=== PATIENT | male | born 1995 | race American Indian/Alaskan Native ===

== ENCOUNTER 2020-01-26 00:53 | Emergency (ER) | payer MEDICAID, OTHER ==
[2020-01-26] MEDS ORDERED: Sodium Chloride 0.9% 10 ML Syringe FLUSH PRN (01:30)
[2020-01-26] MEDS ORDERED: cloNIDine 0.1 MG Tab PO ONE (01:31)
[2020-01-26] MEDS ORDERED: LORazepam 2 MG/ML SDV IVPUSH ONE (01:33)
[2020-01-26] MEDS ORDERED: Furosemide 40 MG/4 ML VIAL IVPUSH ONE (01:33)
[2020-01-26 02:06] LABS: ANION GAP 13.2 mEq/L (7-13); CHLORIDE,CL 96 mmol/L (98-107); SODIUM,NA 138 mmol/L (136-145)
--- NOTE | 2020-01-26 02:06 | EDM.PDOCBH ---
ED HPI GENERAL MEDICAL PROBLEM - General Chief Complaint: Behavioral/Psych Stated Complaint: ISSUES? PT STATES HE NEEDS HELP Time Seen by Provider: 01/26/20 01:15 Source of Information: Reports: Patient, Family, RN, RN Notes Reviewed History Limitations: Reports: No Limitations - History of Present Illness INITIAL COMMENTS - FREE TEXT/NARRATIVE: Patient presents to ER with complaint of anxiety and swelling of the lower legs. Patient states he came here from [place] for his mother's . Patient states he has been drinking heavily for the past couple of months on a daily basis. Patient states last drink was 2 days ago. Patient states he has been feeling anxious for the past 7 days. States he has a history of high blood pressure, borderline diabetes not on any meds at this time for that. Patient states he takes 80 mg of Lasix daily, hydrochlorothiazide. Patient states over the past couple of days he has noticed increased swelling in the lower legs and feet, to the point that he is unable to wear shoes. Patient states his blood pressure is quite elevated at this time as well. Patient admits to some shortness of breath with ambulating and exertion. Denies any pain other than the tautness of the skin of the lower legs. Patient's father is concerned regarding COVID testing. Patient states he has been tested twice in the past and they were negative, and states he has not had any exposure to COVID-19. Patient has green gummy drainage from the eyes bilaterally, states this has been going on for the past couple of days. Patient states he does to have gallstones and has been doctoring for that. Patient states he had developed ascites from the gallstones. Onset: Gradual - Related Data Allergies Allergy/AdvReac Type Severity Reaction Status Date / Time No Known Allergies Allergy Verified 01/26/20 01:07 Home Meds: Home Meds Furosemide [Lasix] 80 mg PO DAILY 01/26/20 [History] hydroCHLOROthiazide [Hydrochlorothiazide] 12.5 mg PO DAILY 01/26/20 [History] Past Medical History Cardiovascular History: Reports: Hypertension Other Cardiovascular History: edema Gastrointestinal History: Reports: Cholelithiasis Endocrine/Metabolic History: Reports: Obesity/BMI 30+ Social & Family History - Tobacco Use Smoking Status *Q: Never Smoker Second Hand Smoke Exposure: No - Recreational Drug Use Recreational Drug Use: No ED ROS GENERAL - Review of Systems Review Of Systems: Comprehensive ROS is negative, except as noted in HPI. ED EXAM, BEHAVIORAL HEALTH - Physical Exam Exam: See Below Exam Limited By: No Limitations General Appearance: Alert, WD/WN, No Apparent Distress, Obese Eye Exam: Bilateral Eye: Conjunctival Injection, EOMI, Other (Green discharge) Ears: Normal External Exam, Hearing Grossly Normal Nose: Normal Inspection Throat/Mouth: Normal Inspection, Normal Voice, No Airway Compromise Head: Atraumatic, Normocephalic Neck: Normal Inspection, Supple, Non-Tender, Full Range of Motion Respiratory/Chest: No Respiratory Distress, Lungs Clear, Normal Breath Sounds, No Accessory Muscle Use, Chest Non-Tender Cardiovascular: Normal Peripheral Pulses, Regular Rate, Rhythm, No Edema, No Gallop, No JVD, No Murmur, No Rub GI/Abdominal: Normal Bowel Sounds, Soft, Non-Tender (Male) Exam: Deferred Rectal (Males) Exam: Deferred Back Exam: Normal Inspection, Decreased Range of Motion Extremities: Pedal Edema, Limited Range of Motion, Other (Pitting edema to the lower legs and feet +4) Neurological: Alert, Normal Mood/Affect, CN II-XII Intact, Normal Cognition, Normal Gait, Normal Reflexes, No Motor/Sensory Deficits, Oriented x 3 Psychiatric: Alert, Normal Affect, Normal Cognition, Normal Mood, Oriented Skin Exam: Warm, Dry, Intact, Normal color, No rash COURSE, BEHAVIORAL HEALTH COMP - Course Vital Signs: Last Vital Signs Temp 97.5 F 01/26/20 01:00 Pulse 119 H 01/26/20 01:00 Resp 22 H 01/26/20 01:00 BP 166/120 H 01/26/20 01:44 Pulse Ox 95 01/26/20 01:00 Orders, Labs, Meds: Active Orders 24 hr Category Date Time Status Peripheral IV Care [RC] . DIRECTED Care 01/26/20 01:31 Active Sodium Chloride 0.9% [Saline Flush] Med 01/26/20 01:30 Active 10 ml FLUSH ASDIRECTED PRN Peripheral IV Insertion Adult [OM.PC] Stat Oth 01/26/20 01:30 Ordered Medication Orders Sodium Chloride (Saline Flush) 10 ml FLUSH ASDIRECTED PRN PRN Reason: Keep Vein Open Last Admin: 01/26/20 01:48 Dose: 10 ml Documented by: JOSEPH Laboratory Tests 01/26/20 01/26/20 Range/Units 01:39 01:39 WBC 7.8 (5.0-10.0) 10^3/uL RBC 6.13 (4.6-6.2) 10^6/uL Hgb 18.4 H (14.0-18.0) g/dL Hct 57.7 H (40.0-54.0) % MCV 94.1 (80-100) fL MCH 30.0 (27.0-34.0) pg MCHC 31.9 L (33.0-35.0) g/dL Plt Count 162 (150-450) 10^3/uL Neut % (Auto) 67.5 (42.2-75.2) % Lymph % (Auto) 18.9 L (20.5-50.1) % [place] % (Auto) 9.7 H (2-8) % Eos % (Auto) 3.5 H (1.0-3.0) % Baso % (Auto) 0.4 (0.0-1.0) % Sodium 138 (136-145) mmol/L Potassium 3.2 L (3.5-5.1) mmol/L Chloride 96 L (98-107) mmol/L Carbon Dioxide 32 (21-32) mmol/L Anion Gap 13.2 H (7-13) mEq/L BUN 7 (7-18) mg/dL Creatinine 1.17 (0.70-1.30) mg/dL Est Cr Clr Drug Dosing 105.94 mL/min Estimated GFR (MDRD) > 60 BUN/Creatinine Ratio 6.0 (No establ ref range) Glucose 105 H (74-99) mg/dL Calcium 8.8 (8.5-10.1) mg/dL Total Bilirubin 4.7 H (0.2-1.0) mg/dL AST 176 H (15-37) U/L ALT 110 H (16-63) U/L Alkaline Phosphatase 259 H (46-116) U/L B-Natriuretic Peptide 506 H (0-100) pg/ml Total Protein 9.0 H (6.4-8.2) g/dL Albumin 3.3 L (3.4-5.0) g/dL Globulin 5.7 Albumin/Globulin Ratio 0.58 Ethyl Alcohol < 3 (0) mg/dL Medications Generic Name Dose Route Start Last Admin Trade Name Freq PRN Reason Stop Dose Admin Sodium Chloride 10 ml 01/26/20 01:30 01/26/20 01:48 Saline Flush FLUSH 10 ml ASDIRECTED PRN Administration Keep Vein Open Discontinued Medications Generic Name Dose Route Start Last Admin Trade Name Freq PRN Reason Stop Dose Admin Clonidine HCl 0.1 mg 01/26/20 01:31 01/26/20 01:44 Catapres PO 01/26/20 01:32 0.1 mg ONETIME ONE Administration Furosemide 80 mg 01/26/20 01:33 01/26/20 01:48 Lasix IVPUSH 01/26/20 01:34 80 mg NOW ONE Administration Lorazepam 1 mg 01/26/20 01:33 01/26/20 01:45 Ativan IVPUSH 01/26/20 01:34 1 mg ONETIME ONE Administration Re-Assessment/Re-Exam: Chest xray: PROCEDURE INFORMATION: Exam: XR Chest, 2 Views Exam date and time: 01/26/2020 1:52 AM Age: 24 years old Clinical indication: Other: Dependant edema, SOB TECHNIQUE: Imaging protocol: XR of the chest Views: 2 views. COMPARISON: No relevant prior studies available. FINDINGS: Lungs: Unremarkable. No consolidation. Pleural space: Unremarkable. No pleural effusion. No pneumothorax. Heart/Mediastinum: Unremarkable. No cardiomegaly. Bones/joints: Unremarkable. IMPRESSION: No acute findings. Thank you for allowing us to participate in the care of your patient. Dictated and Authenticated by: Brian Herrmann MD 01/26/2020 2:20 AM Central Time ([place] & [place]) See rad report Discharge vs Psych Eval/Treatment:: 01/26/20 02:56 Discussed patient case with Dr. Head at [facility], who agreed to accept the patient for transfer. Departure - Departure Time of Disposition: 03:24 Disposition: DC/Tfer to Acute Hospital 02 Condition: Fair Clinical Impression: Anxiety, Alcohol abuse, Elevated liver enzymes Hypertension Qualifiers: Hypertension type: unspecified Qualified Code(s): I10 - Essential (primary) hypertension - Discharge Information *PRESCRIPTION DRUG MONITORING PROGRAM REVIEWED*: No *COPY OF PRESCRIPTION DRUG MONITORING REPORT IN PATIENT TYE: No Forms: ED Department Discharge, Interfacility Transfer EMTALA Sepsis Event Note (ED) - Evaluation Sepsis Screening Result: No Definite Risk - Focused Exam Vital Signs: Vital Signs Temp Pulse Resp BP BP BP Pulse Ox 01/26/20 01:44 166/120 H 01/26/20 01:00 97.5 F 119 H 22 H 189/127 H 173/132 H 95 - My Orders Last 24 Hours: My Active Orders 01/26/20 01:30 Sodium Chloride 0.9% [Saline Flush] 10 ml FLUSH ASDIRECTED PRN Peripheral IV Insertion Adult [OM.PC] Stat 01/26/20 01:31 Peripheral IV Care [RC] . DIRECTED - Assessment/Plan Last 24 Hours: My Active Orders 01/26/20 01:30 Sodium Chloride 0.9% [Saline Flush] 10 ml FLUSH ASDIRECTED PRN Peripheral IV Insertion Adult [OM.PC] Stat 01/26/20 01:31 Peripheral IV Care [RC] . DIRECTED
--- NOTE | 2020-01-26 02:20 | CR ---
PROCEDURE INFORMATION: Exam: XR Chest, 2 Views Exam date and time: 01/26/2020 1:52 AM Age: 24 years old Clinical indication: Other: Dependant edema, SOB TECHNIQUE: Imaging protocol: XR of the chest Views: 2 views. COMPARISON: No relevant prior studies available. FINDINGS: Lungs: Unremarkable. No consolidation. Pleural space: Unremarkable. No pleural effusion. No pneumothorax. Heart/Mediastinum: Unremarkable. No cardiomegaly. Bones/joints: Unremarkable. IMPRESSION: No acute findings.
== END 2020-01-26 03:21 ==
LOC: DL.ED 00:53
DX: F41.9 Anxiety disorder, unspecified (principal); I10 Essential (primary) hypertension; F10.10 Alcohol abuse, uncomplicated; R74.8 Abnormal levels of other serum enzymes; E66.9 Obesity, unspecified; Z68.45 Body mass index [BMI] 70 or greater, adult; Z79.899 Other long term (current) drug therapy
CPT/HCPCS: 36415; 71046; 80053; 80307; 83880; 85025; 96374; 96375; 99284; A9270; J1940; J2060

== ENCOUNTER 2020-04-29 22:42 | Emergency (ER) | payer MEDICAID, OTHER ==
--- NOTE | 2020-04-29 23:01 | EDM.PDOCBH ---
ED HPI GENERAL MEDICAL PROBLEM - General Chief Complaint: Behavioral/Psych Stated Complaint: DOESNT FEEL WELL Time Seen by Provider: 04/29/20 22:59 Source of Information: Reports: Patient, RN, RN Notes Reviewed History Limitations: Reports: No Limitations - History of Present Illness INITIAL COMMENTS - FREE TEXT/NARRATIVE: Patient presents to ER with complaint of a lot of stress and anxiety. States he was sitting watching football game and became very sweaty, and states it resolved spontaneously. Patient denied any chest pains or shortness of breath with the episode, states he did not feel super anxious at that time. States he has been working with the doctor at [facility] for weight loss, has lost 30 pounds since January. Patient states he has refrain from drinking alcohol since January, and has been focusing on his health. Patient states he was discharged from the hospital in January with trazodone, states he has ran out of that. Patient states his primary will not refill the trazodone. Patient states he has had several family members that have been ill, and this gives him a lot of stress and anxiety. States he has been wanting to start some counseling, but does not know how to go about it. - Related Data Allergies Allergy/AdvReac Type Severity Reaction Status Date / Time No Known Allergies Allergy Verified 04/29/20 22:51 Home Meds: Home Meds Furosemide [Lasix] 80 mg PO DAILY 01/26/20 [History] Potassium Chloride 40 meq PO DAILY 04/29/20 [History] Spironolactone [Aldactone] 25 mg PO DAILY 04/29/20 [History] carvediloL [Carvedilol] 6.25 mg PO DAILY 04/29/20 [History] lisinopriL [Lisinopril] 5 mg PO DAILY 04/29/20 [History] Past Medical History Cardiovascular History: Reports: Hypertension Other Cardiovascular History: edema Gastrointestinal History: Reports: Cholelithiasis, GERD Psychiatric History: Reports: Anxiety Endocrine/Metabolic History: Reports: Obesity/BMI 30+ Social & Family History - Family History Family Medical History: Noncontributory - Tobacco Use Smoking Status *Q: Former Smoker Used Tobacco, but Quit: Yes Month/Year Tobacco Last Used: 01/13 - Caffeine Use Caffeine Use: Reports: Coffee, Tea - Recreational Drug Use Recreational Drug Use: No ED ROS GENERAL - Review of Systems Review Of Systems: Comprehensive ROS is negative, except as noted in HPI. ED EXAM, BEHAVIORAL HEALTH - Physical Exam Exam: See Below Exam Limited By: No Limitations General Appearance: Alert, WD/WN, No Apparent Distress, Obese Eye Exam: Bilateral Eye: EOMI, Normal Inspection Ears: Normal External Exam, Hearing Grossly Normal Nose: Normal Inspection Throat/Mouth: Normal Inspection, Normal Voice, No Airway Compromise Head: Atraumatic, Normocephalic Neck: Normal Inspection, Supple, Non-Tender, Full Range of Motion Respiratory/Chest: No Respiratory Distress, Lungs Clear, Normal Breath Sounds, No Accessory Muscle Use, Chest Non-Tender Cardiovascular: Normal Peripheral Pulses, Regular Rate, Rhythm, No Edema, No Gallop, No JVD, No Murmur, No Rub GI/Abdominal: Normal Bowel Sounds, Soft, Non-Tender (Male) Exam: Deferred Rectal (Males) Exam: Deferred Back Exam: Normal Inspection, Full Range of Motion, NT Extremities: Normal Inspection, Normal Range of Motion, Non-Tender, Normal Capillary Refill, Pedal Edema (+2) Neurological: Alert, Normal Mood/Affect, CN II-XII Intact, Normal Cognition, Normal Gait, Normal Reflexes, No Motor/Sensory Deficits, Oriented x 3 Psychiatric: Alert, Normal Affect, Normal Cognition, Normal Mood, Oriented Skin Exam: Warm, Dry, Intact, Normal color, No rash COURSE, BEHAVIORAL HEALTH COMP - Course Vital Signs: Last Vital Signs Temp 96.6 F L 04/29/20 22:45 Pulse 92 04/29/20 22:45 Resp 16 04/29/20 22:45 BP 157/91 H 04/29/20 22:45 Pulse Ox 94 L 04/29/20 22:45 Orders, Labs, Meds: Active Orders 24 hr Category Date Time Status EKG Documentation Completion [RC] STAT Care 04/29/20 23:08 Active Chest 1V Frontal [CR] Stat Exams 04/29/20 23:08 Stop Req Laboratory Tests 04/29/20 04/29/20 Range/Units 23:20 23:20 WBC 12.8 H (5.0-10.0) 10^3/uL RBC 5.44 (4.6-6.2) 10^6/uL Hgb 16.8 D (14.0-18.0) g/dL Hct 49.2 (40.0-54.0) % MCV 90.4 D (80-100) fL MCH 30.9 (27.0-34.0) pg MCHC 34.1 (33.0-35.0) g/dL Plt Count 336 D (150-450) 10^3/uL Neut % (Auto) 62.8 (42.2-75.2) % Lymph % (Auto) 28.0 (20.5-50.1) % [place] % (Auto) 5.9 (2-8) % Eos % (Auto) 3.1 H (1.0-3.0) % Baso % (Auto) 0.2 (0.0-1.0) % Sodium 138 (136-145) mmol/L Potassium 3.7 (3.5-5.1) mmol/L Chloride 100 (98-107) mmol/L Carbon Dioxide 31 (21-32) mmol/L Anion Gap 10.7 (7-13) mEq/L BUN 18 (7-18) mg/dL Creatinine 0.87 (0.70-1.30) mg/dL Est Cr Clr Drug Dosing 141.23 mL/min Estimated GFR (MDRD) > 60 BUN/Creatinine Ratio 20.7 (No establ ref range) Glucose 128 H (74-99) mg/dL Calcium 9.4 (8.5-10.1) mg/dL Total Bilirubin 0.5 (0.2-1.0) mg/dL AST 29 (15-37) U/L ALT 48 (16-63) U/L Alkaline Phosphatase 161 H (46-116) U/L Troponin I < 0.017 (0.000-0.056) ng/mL Total Protein 8.7 H (6.4-8.2) g/dL Albumin 3.2 L (3.4-5.0) g/dL Globulin 5.5 Albumin/Globulin Ratio 0.58 Departure - Departure Time of Disposition: 23:53 Disposition: Home, Self-Care 01 Condition: Good Clinical Impression: Anxiety - Discharge Information *PRESCRIPTION DRUG MONITORING PROGRAM REVIEWED*: No *COPY OF PRESCRIPTION DRUG MONITORING REPORT IN PATIENT TYE: No Forms: ED Department Discharge Additional Instructions: Present to the [facility] ([address], [place]) Get evaluated and set up for counseling. Sepsis Event Note (ED) - Evaluation Sepsis Screening Result: No Definite Risk - Focused Exam Vital Signs: Vital Signs Temp Pulse Resp BP Pulse Ox 04/29/20 22:45 96.6 F L 92 16 157/91 H 94 L - My Orders Last 24 Hours: My Active Orders 04/29/20 23:08 EKG Documentation Completion [RC] STAT Chest 1V Frontal [CR] Stat - Assessment/Plan Last 24 Hours: My Active Orders 04/29/20 23:08 EKG Documentation Completion [RC] STAT Chest 1V Frontal [CR] Stat
[2020-04-29 23:45] LABS: ANION GAP 10.7 mEq/L (7-13); CHLORIDE,CL 100 mmol/L (98-107); SODIUM,NA 138 mmol/L (136-145)
== END 2020-04-29 23:56 | disposition home or self-care (01) ==
LOC: DL.ED 22:42
DX: F41.9 Anxiety disorder, unspecified (principal); I10 Essential (primary) hypertension; E66.9 Obesity, unspecified; Z79.899 Other long term (current) drug therapy; Z68.44 Body mass index [BMI] 60.0-69.9, adult; Z87.891 Personal history of nicotine dependence
CPT/HCPCS: 36415; 80053; 84484; 85025; 93005; 99283; 99283-25

== ENCOUNTER 2020-08-22 17:54 | Emergency (ER) | payer MEDICAID, OTHER ==
[2020-08-22] MEDS ORDERED: Acetaminophen 325 MG Tab PO ONE (18:12)
--- NOTE | 2020-08-22 19:50 | CR ---
PROCEDURE INFORMATION: Exam: XR Chest, 1 View Exam date and time: 08/22/2020 7:40 PM Age: 25 years old Clinical indication: Other: Covid, SOB, day 9 TECHNIQUE: Imaging protocol: XR of the chest Views: 1 view. Total images: 1 COMPARISON: CR Chest 2V 01/26/2020 1:52 AM FINDINGS: Lungs: Bilateral hazy ground-glass lung opacities. Pleural spaces: Unremarkable. No pleural effusion. No pneumothorax. Heart/Mediastinum: Mild cardiomegaly. Bones/joints: Unremarkable. IMPRESSION: Bilateral ground-glass lung opacities may represent pneumonia and or underlying edema. May be pneumonia with atypical infections possible.
[2020-08-22 19:58] LABS: ANION GAP 14.6 mEq/L (7-13); CHLORIDE,CL 98 mmol/L (98-107); SODIUM,NA 138 mmol/L (136-145)
[2020-08-22] MEDS ORDERED: Amoxicillin/Clavulanate K 875-125 MG Tab PO ONE (20:23)
--- NOTE | 2020-08-22 20:31 | EDM.PDOC ---
ED HPI GENERAL MEDICAL PROBLEM - General Chief Complaint: Fever Stated Complaint: COVID POS, 99.63 TEMP,SHORTNESS OF BREATH Time Seen by Provider: 08/22/20 19:05 Source of Information: Reports: Patient, RN History Limitations: Reports: No Limitations - History of Present Illness INITIAL COMMENTS - FREE TEXT/NARRATIVE: ED with c/o fever and feeling more short of breath tonight. Onset sx 9 days prior. Tested positive for COVID on Thursday. Some cough. Reports anxiety and harder to breath when checked temp and it [id number] at home. Unsure if thermometer accurate. Has pulse ox at home, 92-94%but HR 138. Has been drinking fluids. Notes knowledge of risk factors due to severe obesity and hypertension. Took 600mg of ibuprofen [employer]. Reports feeling better now. Sx generally worse 3-4 days prior. - Related Data Allergies Allergy/AdvReac Type Severity Reaction Status Date / Time No Known Allergies Allergy Verified 08/22/20 18:23 Home Meds: Home Meds Furosemide [Lasix] 80 mg PO DAILY 01/26/20 [History] Potassium Chloride 40 meq PO DAILY 04/29/20 [History] Spironolactone [Aldactone] 25 mg PO DAILY 04/29/20 [History] carvediloL [Carvedilol] 6.25 mg PO DAILY 04/29/20 [History] lisinopriL [Lisinopril] 5 mg PO DAILY 04/29/20 [History] Past Medical History Cardiovascular History: Reports: Hypertension Other Cardiovascular History: edema Gastrointestinal History: Reports: Cholelithiasis, Fatty Liver, GERD Psychiatric History: Reports: Anxiety Endocrine/Metabolic History: Reports: Obesity/BMI 30+ - Infectious Disease History Infectious Disease History: Reports: Hepatitis A, Novel Coronavirus Social & Family History - Family History Family Medical History: No Pertinent Family History - Tobacco Use Tobacco Use Status *Q: Never Tobacco User Second Hand Smoke Exposure: No - Caffeine Use Caffeine Use: Reports: Coffee, Tea - Recreational Drug Use Recreational Drug Use: No ED ROS GENERAL - Review of Systems Review Of Systems: Comprehensive ROS is negative, except as noted in HPI. ED EXAM, GENERAL - Physical Exam Exam: See Below Exam Limited By: No Limitations General Appearance: Alert, Anxious, Obese (morbid) Eye Exam: Bilateral Eye: EOMI Ears: Normal External Exam, Hearing Grossly Normal Nose: Normal Inspection Throat/Mouth: Normal Inspection, Normal Voice Head: Atraumatic, Normocephalic Respiratory/Chest: No Respiratory Distress, Decreased Breath Sounds, Rales, Othe r (Oxygen sat at rest 92% with conversation increase 94%). No: Wheezing Cardiovascular: Normal Peripheral Pulses, Regular Rate, Rhythm GI/Abdominal: Normal Bowel Sounds Back Exam: Normal Inspection Extremities: Normal Inspection, Normal Range of Motion Neurological: Alert, Oriented, Normal Cognition Psychiatric: Normal Affect, Anxious Skin Exam: Warm, Dry, Intact, Normal Color Course - Vital Signs Last Recorded V/S: Last Vital Signs Temp 97.2 F 08/22/20 19:03 Pulse 103 H 08/22/20 18:15 Resp 18 08/22/20 18:15 BP 159/89 H 08/22/20 18:15 Pulse Ox 95 08/22/20 18:15 - Orders/Labs/Meds Labs: Laboratory Tests 08/22/20 08/22/20 08/22/20 Range/Units 19:33 19:33 19:33 WBC 11.2 H (5.0-10.0) 10^3/uL RBC 5.91 (4.6-6.2) 10^6/uL Hgb 17.7 (14.0-18.0) g/dL Hct 51.3 (40.0-54.0) % MCV 86.8 D (80-100) fL MCH 29.9 (27.0-34.0) pg MCHC 34.5 (33.0-35.0) g/dL Plt Count 268 (150-450) 10^3/uL Neut % (Auto) 85.8 H (42.2-75.2) % Lymph % (Auto) 8.6 L (20.5-50.1) % [place] % (Auto) 5.3 (2-8) % Eos % (Auto) 0.0 L (1.0-3.0) % Baso % (Auto) 0.3 (0.0-1.0) % D-Dimer, Quantitative 470 H (0-400) ng/mL Sodium 138 (136-145) mmol/L Potassium 3.6 (3.5-5.1) mmol/L Chloride 98 (98-107) mmol/L Carbon Dioxide 29 (21-32) mmol/L Anion Gap 14.6 H (7-13) mEq/L BUN 14 (7-18) mg/dL Creatinine 0.83 (0.70-1.30) mg/dL Est Cr Clr Drug Dosing 152.42 mL/min Estimated GFR (MDRD) > 60 BUN/Creatinine Ratio 16.9 (No establ ref range) Glucose 114 H (74-99) mg/dL Lactic Acid (0.4-2.0) mmol/L Calcium 8.4 L (8.5-10.1) mg/dL Total Bilirubin 0.5 (0.2-1.0) mg/dL AST 40 H (15-37) U/L ALT 61 (16-63) U/L Alkaline Phosphatase 159 H (46-116) U/L C-Reactive Protein 5.8 H (0.0-0.9) mg/dL Total Protein 8.6 H (6.4-8.2) g/dL Albumin 3.3 L (3.4-5.0) g/dL Globulin 5.3 Albumin/Globulin Ratio 0.62 // Range/Units 19:33 WBC (5.0-10.0) 10^3/uL RBC (4.6-6.2) 10^6/uL Hgb (14.0-18.0) g/dL Hct (40.0-54.0) % MCV (80-100) fL MCH (27.0-34.0) pg MCHC (33.0-35.0) g/dL Plt Count (150-450) 10^3/uL Neut % (Auto) (42.2-75.2) % Lymph % (Auto) (20.5-50.1) % [place] % (Auto) (2-8) % Eos % (Auto) (1.0-3.0) % Baso % (Auto) (0.0-1.0) % D-Dimer, Quantitative (0-400) ng/mL Sodium (136-145) mmol/L Potassium (3.5-5.1) mmol/L Chloride (98-107) mmol/L Carbon Dioxide (21-32) mmol/L Anion Gap (7-13) mEq/L BUN (7-18) mg/dL Creatinine (0.70-1.30) mg/dL Est Cr Clr Drug Dosing mL/min Estimated GFR (MDRD) BUN/Creatinine Ratio (No establ ref range) Glucose (74-99) mg/dL Lactic Acid 1.5 (0.4-2.0) mmol/L Calcium (8.5-10.1) mg/dL Total Bilirubin (0.2-1.0) mg/dL AST (15-37) U/L ALT (16-63) U/L Alkaline Phosphatase (46-116) U/L C-Reactive Protein (0.0-0.9) mg/dL Total Protein (6.4-8.2) g/dL Albumin (3.4-5.0) g/dL Globulin Albumin/Globulin Ratio Meds: Medications Discontinued Medications Generic Name Dose Route Start Last Admin Trade Name Viet PRN Reason Stop Dose Admin Acetaminophen 650 mg 08/22/20 18:12 08/22/20 18:18 Tylenol PO 08/22/20 18:13 650 mg NOW ONE Administration Amoxicillin/Clavulanate Potassium 1 tab 08/22/20 20:23 08/22/20 20:28 Augmentin 875 Mg/125 Mg PO 08/22/20 20:24 1 tab ONETIME ONE Administration Departure - Departure Time of Disposition: 20:26 Disposition: Home, Self-Care 01 Condition: Fair Clinical Impression: Pneumonia due to COVID-19 virus, Obese body habitus - Discharge Information *PRESCRIPTION DRUG MONITORING PROGRAM REVIEWED*: No *COPY OF PRESCRIPTION DRUG MONITORING REPORT IN PATIENT TYE: No Instructions: 10 Things You Can Do to Manage Your COVID-19 Symptoms at Home - [facility] Forms: ED Department Discharge Additional Instructions: humidifier Continue home medications tylenol 650mg every 4 hours as needed for fever/ discomfort augmentin 875/125 one twice daily for one week Urgent follow up if increased difficulty breathing, unable to control fever or general worsening of symptoms Sepsis Event Note (ED) - Evaluation Sepsis Screening Result: Possible Sepsis Risk - Focused Exam Vital Signs: Vital Signs Temp Pulse Resp BP Pulse Ox 08/22/20 19:03 97.2 F 08/22/20 18:15 103.5 F H 103 H 18 159/89 H 95
== END 2020-08-22 20:40 | disposition home or self-care (01) ==
LOC: DL.ED 17:54
DX: U07.1 COVID-19 (principal); J12.82 Pneumonia due to coronavirus disease 2019; I10 Essential (primary) hypertension; E66.01 Morbid (severe) obesity due to excess calories; Z68.44 Body mass index [BMI] 60.0-69.9, adult; Z79.899 Other long term (current) drug therapy
CPT/HCPCS: 36415; 71045; 80053; 83605; 85025; 85379; 86140; 99283; 99285-25; A9270-GY

== ENCOUNTER 2020-08-24 09:24 | Emergency (ER) | payer MEDICAID ==
--- NOTE | 2020-08-24 10:02 | EDM.PDOC ---
ED HPI GENERAL MEDICAL PROBLEM - General Chief Complaint: Respiratory Problem Stated Complaint: COVID, PNEUMONIA, FEVER Time Seen by Provider: 08/24/20 09:45 Source of Information: Reports: Patient, Old Records, RN, RN Notes Reviewed History Limitations: Reports: No Limitations - History of Present Illness INITIAL COMMENTS - FREE TEXT/NARRATIVE: Patient presents to the ED via personal vehicle with complaints of progressive shortness of breath. The patient reports he was diagnosed with COVID pneumonia four days prior, 08/20/20, following symptoms which began nine days prior, 08/15/20. He was initially started on Dexamethasone and Albuterol inhaler on 08/20/20 which offered him improvement in his symptoms. He noted a worsening shortness of breath and fever two days into this course, on 08/22/20, and subsequently presented to this ED. His work-up was remarkable for ground glass infiltrates and WBC with a left shift; he was started on Augmentin, instructed to continue the Dexamethasone/Albuterol, and counseled on supportive care measures. The patient presents today stating his shortness of breath has not improved. He has been monitoring his O2 at home via pulse oximetry and notes this morning his O2 was maintaining between 83-87% at rest. Additionally, he attest to chest tightness, intermittent palpitations, and diarrhea. He notes he is still experiencing fever but that it appropriately reduces with antipyretics; his last dose of Tylenol was at 0800 today. He denies vision changes, headache, cough, sore throat, nausea, vomiting, melena, or hematochezia. He denies tobacco, alcohol, or recreational drug use. He states he is not on oxygen therapy at baseline. He notes despite his size he attempts to remain active; he has lost 100+ lbs over the past year. - Related Data Allergies Allergy/AdvReac Type Severity Reaction Status Date / Time No Known Allergies Allergy Verified 08/24/20 09:32 Home Meds: Home Meds Furosemide [Lasix] 80 mg PO DAILY 01/26/20 [History] Potassium Chloride 40 meq PO DAILY 04/29/20 [History] Spironolactone [Aldactone] 25 mg PO DAILY 04/29/20 [History] carvediloL [Carvedilol] 6.25 mg PO DAILY 04/29/20 [History] lisinopriL [Lisinopril] 5 mg PO DAILY 04/29/20 [History] Past Medical History HEENT History: Reports: None Cardiovascular History: Reports: Hypertension Other Cardiovascular History: edema Respiratory History: Reports: None Gastrointestinal History: Reports: Cholelithiasis, Fatty Liver, GERD Genitourinary History: Reports: None Musculoskeletal History: Reports: None Neurological History: Reports: None Psychiatric History: Reports: Anxiety Endocrine/Metabolic History: Reports: Obesity/BMI 30+ Hematologic History: Reports: None Immunologic History: Reports: None Oncologic (Cancer) History: Reports: None Dermatologic History: Reports: None - Infectious Disease History Infectious Disease History: Reports: Hepatitis A, Novel Coronavirus - Past Surgical History Head Surgeries/Procedures: Reports: None Social & Family History - Family History Family Medical History: No Pertinent Family History - Tobacco Use Tobacco Use Status *Q: Unknown Ever Used Tobacco - Caffeine Use Caffeine Use: Reports: Coffee, Tea - Recreational Drug Use Recreational Drug Use: No ED ROS GENERAL - Review of Systems Review Of Systems: Comprehensive ROS is negative, except as noted in HPI. ED EXAM, GENERAL - Physical Exam Exam: See Below Exam Limited By: No Limitations General Appearance: Alert, No Apparent Distress, Obese Eye Exam: Bilateral Eye: EOMI, Normal Inspection, PERRL (4mm) Ears: Normal External Exam, Normal Canal, Hearing Grossly Normal. No: Normal TMs (Dull TM, bilaterally) Ear Exam: Bilateral Ear: Auricle Normal, Canal Normal, TM Dull Nose: Normal Inspection. No: Nasal Tenderness, Nasal Swelling, Nasal Drainage Throat/Mouth: Normal Voice, No Airway Compromise, Inflammation (Erythema to posterior oropharynx). No: Normal Oropharynx Head: Atraumatic, Normocephalic Neck: Normal Inspection, Supple, Non-Tender, Full Range of Motion. No: Lymphadenopathy (L), Lymphadenopathy (R) Respiratory/Chest: Lungs Clear, Normal Breath Sounds, No Accessory Muscle Use, Chest Non-Tender, Other (On 2L of O2 via NC to maintain O2 saturations >92%) Cardiovascular: Normal Peripheral Pulses, Regular Rate, Rhythm, No Edema, No Gallop, No JVD, No Murmur, No Rub GI/Abdominal: Normal Bowel Sounds, Soft, Non-Tender, No Distention, No Mass, Pelvis Stable (Male) Exam: Deferred Rectal (Males) Exam: Deferred Back Exam: Normal Inspection, Full Range of Motion. No: CVA Tenderness (L), CVA Tenderness (R) Extremities: Normal Inspection, Normal Range of Motion, Non-Tender, Normal Capillary Refill, No Pedal Edema Neurological: Alert, Oriented, CN II-XII Intact, Normal Cognition, Normal Gait, No Motor/Sensory Deficits Psychiatric: Normal Affect, Normal Mood Skin Exam: Warm, Dry, Intact, Normal Color, No Rash. No: Ecchymosis, Erythema, Jaundice, Mottled, Pallor, Petechiae Course - Vital Signs Last Recorded V/S: Last Vital Signs Temp 98.2 F 08/24/20 09:34 Pulse 80 08/24/20 09:34 Resp 20 08/24/20 09:34 BP 138/75 08/24/20 09:34 Pulse Ox 87 L 08/24/20 09:34 - Orders/Labs/Meds Labs: Laboratory Tests 08/24/20 08/24/20 08/24/20 Range/Units 10:08 10:08 10:08 WBC 11.9 H (5.0-10.0) 10^3/uL RBC 5.83 (4.6-6.2) 10^6/uL Hgb 17.4 (14.0-18.0) g/dL Hct 50.2 (40.0-54.0) % MCV 86.1 (80-100) fL MCH 29.8 (27.0-34.0) pg MCHC 34.7 (33.0-35.0) g/dL Plt Count 262 (150-450) 10^3/uL Neut % (Auto) 89.7 H (42.2-75.2) % Lymph % (Auto) 7.1 L (20.5-50.1) % [place] % (Auto) 2.9 (2-8) % Eos % (Auto) 0.1 L (1.0-3.0) % Baso % (Auto) 0.2 (0.0-1.0) % D-Dimer, Quantitative 1150 H (0-400) ng/mL Sodium 136 (136-145) mmol/L Potassium 3.7 (3.5-5.1) mmol/L Chloride 97 L (98-107) mmol/L Carbon Dioxide 28 (21-32) mmol/L Anion Gap 14.7 H (7-13) mEq/L BUN 17 (7-18) mg/dL Creatinine 0.87 (0.70-1.30) mg/dL Est Cr Clr Drug Dosing 141.23 mL/min Estimated GFR (MDRD) > 60 BUN/Creatinine Ratio 19.5 (No establ ref range) Glucose 111 H (74-99) mg/dL Lactic Acid (0.4-2.0) mmol/L Calcium 8.6 (8.5-10.1) mg/dL Total Bilirubin 0.6 (0.2-1.0) mg/dL AST 65 H (15-37) U/L ALT 65 H (16-63) U/L Alkaline Phosphatase 141 H (46-116) U/L Total Protein 8.5 H (6.4-8.2) g/dL Albumin 3.2 L (3.4-5.0) g/dL Globulin 5.3 Albumin/Globulin Ratio 0.60 /29/ Range/Units 10:08 WBC (5.0-10.0) 10^3/uL RBC (4.6-6.2) 10^6/uL Hgb (14.0-18.0) g/dL Hct (40.0-54.0) % MCV (80-100) fL MCH (27.0-34.0) pg MCHC (33.0-35.0) g/dL Plt Count (150-450) 10^3/uL Neut % (Auto) (42.2-75.2) % Lymph % (Auto) (20.5-50.1) % [place] % (Auto) (2-8) % Eos % (Auto) (1.0-3.0) % Baso % (Auto) (0.0-1.0) % D-Dimer, Quantitative (0-400) ng/mL Sodium (136-145) mmol/L Potassium (3.5-5.1) mmol/L Chloride (98-107) mmol/L Carbon Dioxide (21-32) mmol/L Anion Gap (7-13) mEq/L BUN (7-18) mg/dL Creatinine (0.70-1.30) mg/dL Est Cr Clr Drug Dosing mL/min Estimated GFR (MDRD) BUN/Creatinine Ratio (No establ ref range) Glucose (74-99) mg/dL Lactic Acid 1.1 (0.4-2.0) mmol/L Calcium (8.5-10.1) mg/dL Total Bilirubin (0.2-1.0) mg/dL AST (15-37) U/L ALT (16-63) U/L Alkaline Phosphatase (46-116) U/L Total Protein (6.4-8.2) g/dL Albumin (3.4-5.0) g/dL Globulin Albumin/Globulin Ratio - Re-Assessments/Exams Free Text/Narrative Re-Assessment/Exam: 08/24/20 WBC remains elevated at 11.9 with left shift despite two days of Augmentin. D- Dimer now 1150, up from 440 on 08/24/20. Renal function appropriate, however patient's weight limits ability to perform CT for PE study at this facility as the CT table has a max weight capacity of 500lbs. Case discussed with Dr. Dan, emergency room provider at [facility] in [place]. Dr. Dan kindly agreed to accept patient for transfer to perform r/o PE study. Discussed need for transfer for r/o PE study with patient given progressing shortness of breath, hypoxia, and lab values. Patient verbalized understanding and agreement with plan of care. Case discussed with patient's father, Adarsh, at the request of the patient. All questions answered at this time. Departure - Departure Time of Disposition: 11:47 Disposition: DC/Tfer to Acute Hospital 02 Condition: Fair Clinical Impression: Pneumonia due to COVID-19 virus, Hypoxia, Elevated d-dimer Obesity Qualifiers: Obesity type: unspecified obesity type Obesity classification: adult class 3 (BMI >= 40) Serious obesity comorbidity presence: unspecified whether serious comorbidity present Body mass index: BMI 70 or greater Qualified Code(s): E66.01 - Morbid (severe) obesity due to excess calories - Discharge Information Forms: ED Department Discharge, Interfacility Transfer [facility] Sepsis Event Note (ED) - Evaluation Sepsis Screening Result: No Definite Risk - Focused Exam Vital Signs: Vital Signs Temp Pulse Resp BP Pulse Ox 08/24/20 09:34 98.2 F 80 20 138/75 87 L
[2020-08-24 10:37] LABS: ANION GAP 14.7 mEq/L (7-13); CHLORIDE,CL 97 mmol/L (98-107); SODIUM,NA 136 mmol/L (136-145)
== END 2020-08-24 11:47 ==
LOC: DL.ED 09:24
DX: U07.1 COVID-19 (principal); J12.82 Pneumonia due to coronavirus disease 2019; R79.1 Abnormal coagulation profile; E66.9 Obesity, unspecified; I10 Essential (primary) hypertension; Z68.45 Body mass index [BMI] 70 or greater, adult; Z79.899 Other long term (current) drug therapy
CPT/HCPCS: 36415; 80053; 83605; 85025; 85379; 99284; 99285

== ENCOUNTER 2021-03-04 16:36 | Emergency (ER) | payer MEDICAID ==
[2021-03-04] MEDS ORDERED: Oxymetazoline 0.05% Nasal Spray 30 ML Bottle NAS ONE (17:50)
--- NOTE | 2021-03-04 18:00 | EDM.PDOC ---
Scribed by Nano Lofton 03/04/21 1800 for Gilles Jorge MD ED HPI GENERAL MEDICAL PROBLEM - General Chief Complaint: ENT Problem Stated Complaint: BLOODY NOSE, Time Seen by Provider: 03/04/21 17:45 Source of Information: Reports: Patient, RN Notes Reviewed - History of Present Illness INITIAL COMMENTS - FREE TEXT/NARRATIVE: 26 y/o M c/o 2 episodes of nose bleeds in the last few days. Pt states he uses supplemental oxygen since having COVID 19 and is concerned that the oxygen use drying out his nose. Denies fever, cough, chills, drugs, etoh, cp, db, abd pn, recent trauma, vision problems, diff voiding, extremity pain. - Related Data Allergies Allergy/AdvReac Type Severity Reaction Status Date / Time No Known Allergies Allergy Verified 03/04/21 17:14 Home Meds: Home Meds Furosemide [Lasix] 60 mg PO BID 01/26/20 [History] Potassium Chloride 40 meq PO BID 04/29/20 [History] Spironolactone [Aldactone] 25 mg PO DAILY 04/29/20 [History] carvediloL [Carvedilol] 6.25 mg PO BID 04/29/20 [History] lisinopriL [Lisinopril] 5 mg PO DAILY 04/29/20 [History] Aspirin 325 mg PO DAILY 03/04/21 [History] cloNIDine [Catapres] 0.1 mg PO DAILY 03/04/21 [History] Past Medical History HEENT History: Reports: None Cardiovascular History: Reports: Hypertension Other Cardiovascular History: edema Respiratory History: Reports: SOB, Other (See Below) Other Respiratory History: O2 after covid Aug 2020 Gastrointestinal History: Reports: Cholelithiasis, Fatty Liver, GERD Genitourinary History: Reports: None Musculoskeletal History: Reports: None Neurological History: Reports: None Psychiatric History: Reports: Addiction, Anxiety Endocrine/Metabolic History: Reports: Obesity/BMI 30+ Hematologic History: Reports: None Immunologic History: Reports: None Oncologic (Cancer) History: Reports: None Dermatologic History: Reports: None - Infectious Disease History Infectious Disease History: Reports: Hepatitis A, Novel Coronavirus - Past Surgical History Head Surgeries/Procedures: Reports: None Social & Family History - Family History Family Medical History: No Pertinent Family History - Tobacco Use Tobacco Use Status *Q: Never Tobacco User - Caffeine Use Caffeine Use: Reports: None - Recreational Drug Use Recreational Drug Use: No ED ROS ENT - Review of Systems Review Of Systems: Comprehensive ROS is negative, except as noted in HPI. ED EXAM, ENT - Physical Exam Exam: See Below Exam Limited By: No Limitations General Appearance: Alert, WD/WN, No Apparent Distress Ears: Normal External Exam, Normal Canal, Hearing Grossly Normal, Normal TMs Nose: Dried Blood, Other (source of nose bleed cannto be identified, no visible lesions upon inspection.) Mouth/Throat: Normal Inspection, Normal Gums, Normal Lips, Normal Oropharynx, Normal Teeth Head: Atraumatic, Normocephalic Neck: Normal Inspection, Supple, Non-Tender, Full Range of Motion Respiratory/Chest: No Respiratory Distress, Lungs Clear Cardiovascular: Normal Peripheral Pulses, Regular Rate, Rhythm (Male) Exam: Deferred Rectal (Males) Exam: Deferred Course - Vital Signs Last Recorded V/S: Last Vital Signs Temp 96.4 F L 03/04/21 17:09 Pulse 89 03/04/21 17:09 Resp 20 03/04/21 17:09 BP 132/116 H 03/04/21 17:09 Pulse Ox 91 L 03/04/21 17:09 - Orders/Labs/Meds Meds: Medications Discontinued Medications Generic Name Dose Route Start Last Admin Trade Name Viet PRN Reason Stop Dose Admin Oxymetazoline HCl 15 ml 03/04/21 17:50 Oxymetazoline 0.05% Nasal [place] 30 Ml Bottle SUSANNE 03/04/21 17:51 ONETIME ONE Departure - Departure Time of Disposition: 17:56 Disposition: Home, Self-Care 01 Condition: Good Clinical Impression: Epistaxis - Discharge Information *PRESCRIPTION DRUG MONITORING PROGRAM REVIEWED*: Not Applicable *COPY OF PRESCRIPTION DRUG MONITORING REPORT IN PATIENT TYE: Not Applicable Instructions: Nosebleed, [id number] Forms: ED Department Discharge Additional Instructions: Afrin 2 large sprays in both nostril if nose bleed returns, then pinch nose firmly for 30 minutes. Rx: Bactroban (Mupirocin) Ointment: place a pea sized amount into each nostril twice a day. Follow up in clinic as planned. Sepsis Event Note (ED) - Evaluation Sepsis Screening Result: No Definite Risk - Focused Exam Vital Signs: Vital Signs Temp Pulse Resp BP Pulse Ox 03/04/21 17:09 96.4 F L 89 20 132/116 H 91 L I have read and agree with the documentation that has been completed regarding this visit. By signing this record, I attest that the documentation was completed in my physical presence and is an accurate record of the encounter.
== END 2021-03-04 18:08 | disposition home or self-care (01) ==
LOC: DL.ED 16:36
DX: R04.0 Epistaxis (principal); I10 Essential (primary) hypertension; E66.9 Obesity, unspecified; Z79.82 Long term (current) use of aspirin; Z68.45 Body mass index [BMI] 70 or greater, adult
CPT/HCPCS: 99283; A9270

== ENCOUNTER 2021-08-11 14:52 | Inpatient (IN) | payer MEDICAID ==
[2021-08-11] MEDS ORDERED: Silver Sulfadiazine 1% Crm 50 GM Tube TOP ONE (16:49)
[2021-08-11] MEDS ORDERED: Sodium Chloride 0.9% 1,000 ML IV ONE (16:55)
[2021-08-11 17:59] LABS: ANION GAP 8.4 mEq/L (7-13); CHLORIDE,CL 96 mmol/L (98-107); SODIUM,NA 140 mmol/L (136-145)
[2021-08-11] MEDS ORDERED: Polyethylene Glycol 3350 Powder 17 GM Packet PO PRN (19:35)
[2021-08-11] MEDS ORDERED: Acetaminophen 325 MG Tab PO PRN (19:35)
[2021-08-11] MEDS ORDERED: Ondansetron 4 MG/2 ML SDV IVPUSH PRN (19:35)
[2021-08-11] MEDS ORDERED: Albuterol/Ipratropium 3.0-0.5 MG/3 ML Neb Soln NEB PRN (19:35)
[2021-08-11] MEDS ORDERED: Docusate Sodium 100 MG Cap PO PRN (19:35)
[2021-08-11] MEDS ORDERED: Zolpidem 5 MG Tab PO PRN (19:35)
[2021-08-11] MEDS ORDERED: guaiFENesin/Dextromethorphan 100-10 MG/5 ML Soln 5 ML Cup PO PRN (19:38)
[2021-08-11] MEDS: Potassium Chloride 10 MEQ Tab.ER PO SCH (21:35)
[2021-08-11] MEDS: Furosemide 20 MG Tab PO SCH (21:35)
[2021-08-11] MEDS: Carvedilol 6.25 MG Tab PO SCH (21:36)
[2021-08-11] MEDS: Enoxaparin 40 MG/0.4 ML Syringe SUBCUT SCH (21:36)
[2021-08-12] MEDS: HYDROmorphone 0.5 MG/0.5 ML Syringe IVPUSH PRN ×6 (00:55→20:44)
[2021-08-12 07:00] LABS: ANION GAP 10.2 mEq/L (7-13); CHLORIDE,CL 96 mmol/L (98-107); SODIUM,NA 140 mmol/L (136-145)
[2021-08-12] MEDS: Cholecalciferol (Vitamin D3) 25 MCG Tab PO SCH (10:28)
[2021-08-12] MEDS: Potassium Chloride 10 MEQ Tab.ER PO SCH ×2 (10:30→20:34)
[2021-08-12] MEDS: Multivitamin Tab PO SCH (10:30)
[2021-08-12] MEDS: Spironolactone 25 MG Tab PO SCH (10:30)
[2021-08-12] MEDS: Lisinopril 5 MG Tab PO SCH (10:31)
[2021-08-12] MEDS: Furosemide 20 MG Tab PO SCH ×2 (10:31→20:35)
[2021-08-12] MEDS: Aspirin 325 MG Tab PO SCH (10:31)
[2021-08-12] MEDS: Carvedilol 6.25 MG Tab PO SCH ×2 (10:32→20:35)
[2021-08-12] MEDS: Oxymetazoline 0.05% Nasal Spray 30 ML Bottle NASBOTH SCH ×2 (10:33→20:36)
[2021-08-12] MEDS: Enoxaparin 40 MG/0.4 ML Syringe SUBCUT SCH ×2 (10:35→20:35)
[2021-08-12] MEDS: Silver Sulfadiazine 1% Crm 50 GM Tube TOP SCH ×2 (11:28→20:37)
[2021-08-12] MEDS: Acetaminophen/HYDROcodone 325-10 MG Tab PO PRN ×2 (14:12→23:11)
[2021-08-13 06:29] LABS: ANION GAP 7.9 mEq/L (7-13); CHLORIDE,CL 95 mmol/L (98-107); SODIUM,NA 140 mmol/L (136-145)
[2021-08-13] MEDS: Potassium Chloride 10 MEQ Tab.ER PO SCH (08:14)
[2021-08-13] MEDS: Spironolactone 25 MG Tab PO SCH (08:14)
[2021-08-13] MEDS: Aspirin 325 MG Tab PO SCH (08:14)
[2021-08-13] MEDS: Acetaminophen/HYDROcodone 325-10 MG Tab PO PRN (08:15)
[2021-08-13] MEDS: Cholecalciferol (Vitamin D3) 25 MCG Tab PO SCH (08:15)
[2021-08-13] MEDS: Furosemide 20 MG Tab PO SCH (08:15)
[2021-08-13] MEDS: Multivitamin Tab PO SCH (08:15)
[2021-08-13] MEDS: Enoxaparin 40 MG/0.4 ML Syringe SUBCUT SCH (08:16)
[2021-08-13] MEDS: Oxymetazoline 0.05% Nasal Spray 30 ML Bottle NASBOTH SCH (08:20)
[2021-08-13] MEDS: Lisinopril 5 MG Tab PO SCH (08:25)
[2021-08-13] MEDS: Carvedilol 6.25 MG Tab PO SCH (08:27)
[2021-08-13] MEDS: Silver Sulfadiazine 1% Crm 50 GM Tube TOP SCH (10:17)
== END 2021-08-13 12:00 | disposition home or self-care (01) | DRG 935 ==
LOC: DL.ED 14:52 → DL.MS 18:21
PROVIDERS: ADMIT Internal Medicine; ATTEND Internal Medicine
DX: T20.20XA Burn of second degree of head, face, and neck, unspecified site, initial encounter (principal); Z68.45 Body mass index [BMI] 70 or greater, adult; J96.11 Chronic respiratory failure with hypoxia; I10 Essential (primary) hypertension; K76.0 Fatty (change of) liver, not elsewhere classified; K21.9 Gastro-esophageal reflux disease without esophagitis; E66.01 Morbid (severe) obesity due to excess calories; F41.9 Anxiety disorder, unspecified; Z20.822 Contact with and (suspected) exposure to COVID-19; K80.20 Calculus of gallbladder without cholecystitis without obstruction; E55.9 Vitamin D deficiency, unspecified; D72.829 Elevated white blood cell count, unspecified; F43.9 Reaction to severe stress, unspecified; E87.8 Other disorders of electrolyte and fluid balance, not elsewhere classified; E88.09 Other disorders of plasma-protein metabolism, not elsewhere classified; T68.XXXA Hypothermia, initial encounter; Z86.16 Personal history of COVID-19; Z99.81 Dependence on supplemental oxygen; Z79.82 Long term (current) use of aspirin; Z28.82 Immunization not carried out because of caregiver refusal; X02.0XXA Exposure to flames in controlled fire in building or structure, initial encounter
CPT/HCPCS: 16020; 36415; 71045; 80053; 83605; 83735; 85025; 86140; 99284; 99284-25; A9270-GY; J1170; J1650; J7030; U0002

== ENCOUNTER 2021-11-26 02:52 | Emergency (ER) | payer MEDICAID ==
[~2021-11-26 02:52] MED LIST: LORazepam 2 MG/ML SDV IVPUSH PRN; methylPREDNISolone Sodium Succinate 125 MG/2 ML SDV IVPUSH ONE
[2021-11-26] MEDS ORDERED: Albuterol 0.083% 2.5 MG/3 ML Neb Soln NEB ONE (03:05)
[2021-11-26 03:23] LABS: CHLORIDE,CL 94 mmol/L (98-107); SODIUM,NA 137 mmol/L (136-145)
[2021-11-26 03:24] LABS: ANION GAP 1.99999 mEq/L (7-13)
[2021-11-26 03:50] LABS: CORONAVIRUS COVID-19 NAA NEGATIVE (NEGATIVE)
[2021-11-26 03:52] LABS: O2 DELIVERY DEVICE NON REBR MASK
[2021-11-26 03:55] LABS: BASE EXCESS VENOUS 25 mmol/l ((-2)-(+3)); BICARBONATE,VENOUS 51 mmol/l (19-25); O2 SATURATION VENOUS 88 % (60-80); PCO2 VENOUS 105 mmHg (41-51); PO2 VENOUS 65 mmHg (35-42)
[2021-11-26] MEDS ORDERED: Furosemide 40 MG/4 ML VIAL IVPUSH ONE (04:26)
[2021-11-26 11:18] LABS: ALLEN TEST PERFORMED; O2 DELIVERY DEVICE HI FLOW NASAL CANNU
[2021-11-26] MEDS ORDERED: LORazepam 2 MG/ML SDV IVPUSH ONE (11:19)
[2021-11-26 11:20] LABS: PCO2 ARTERIAL 130 mmHg (35-45); PO2 ARTERIAL 265 mmHg (70-100)
== END 2021-11-26 15:09 ==
LOC: DL.ED 02:52
DX: U07.1 COVID-19 (principal); J96.21 Acute and chronic respiratory failure with hypoxia; E66.01 Morbid (severe) obesity due to excess calories; Z68.45 Body mass index [BMI] 70 or greater, adult
CPT/HCPCS: 0240U; 36415; 36600; 71045; 80053; 81001; 82803; 82947; 83605; 83735; 83880; 84484; 85025; 85379; 86140; 87040; 93005; 93010; 94640; 94762; 96374; 96375; 96376; 99284; 99285-25; J1940; J2060; J2930; J7613-GY

== ENCOUNTER 2021-12-11 20:09 | Emergency (ER) | payer MEDICAID ==
[2021-12-11 21:29] LABS: PTT,PARTIAL THROMBOPLSTIN TIME 24.2 SEC (22.0-34.0)
[2021-12-11] MEDS ORDERED: Albuterol/Ipratropium 3.0-0.5 MG/3 ML Neb Soln NEB ONE (21:30)
[2021-12-11 21:32] LABS: CHLORIDE,CL 99 mmol/L (98-107); SODIUM,NA 139 mmol/L (136-145)
[2021-12-11 21:54] LABS: CORONAVIRUS COVID-19 NAA NEGATIVE (NEGATIVE); RESPIRATORY SYNCYTIAL VIR NAA NEGATIVE (NEGATIVE)
== END 2021-12-11 22:56 | disposition home or self-care (01) ==
LOC: DL.ED 20:09
DX: J45.40 Moderate persistent asthma, uncomplicated (principal); I11.0 Hypertensive heart disease with heart failure; I50.9 Heart failure, unspecified; E66.01 Morbid (severe) obesity due to excess calories; K21.9 Gastro-esophageal reflux disease without esophagitis; Z68.30 Body mass index [BMI] 30.0-30.9, adult; Z79.82 Long term (current) use of aspirin; Z79.899 Other long term (current) drug therapy; Z86.16 Personal history of COVID-19; Z20.822 Contact with and (suspected) exposure to COVID-19; Z99.81 Dependence on supplemental oxygen
CPT/HCPCS: 0241U; 36415; 71045; 80053; 83605; 83880; 84484; 85025; 85379; 85610; 85730; 86140; 93005; 93010; 99283; 99285; J7620-GY

== ENCOUNTER 2021-12-14 20:49 | Emergency (ER) | payer MEDICAID ==
[2021-12-14 22:09] LABS: ANION GAP 10.1 mEq/L (7-13); CHLORIDE,CL 101 mmol/L (98-107); SODIUM,NA 141 mmol/L (136-145)
== END 2021-12-14 22:50 | disposition home or self-care (01) ==
LOC: DL.ED 20:49
DX: R06.02 Shortness of breath (principal); E66.01 Morbid (severe) obesity due to excess calories; I10 Essential (primary) hypertension; Z86.16 Personal history of COVID-19; Z79.82 Long term (current) use of aspirin; Z79.899 Other long term (current) drug therapy; Z99.81 Dependence on supplemental oxygen; Z68.45 Body mass index [BMI] 70 or greater, adult
CPT/HCPCS: 36415; 80053; 83735; 84484; 85025; 85379; 99284

== ENCOUNTER 2021-12-19 21:17 | Emergency (ER) | payer MEDICAID ==
[2021-12-19] MEDS ORDERED: Albuterol/Ipratropium 3.0-0.5 MG/3 ML Neb Soln NEB ONE (21:42)
[2021-12-19 21:51] LABS: O2 DELIVERY DEVICE NASAL CANNULA
[2021-12-19 21:54] LABS: O2 SATURATION VENOUS 50.6 % (60-80); PCO2 VENOUS 67 mmHg (41-51); PH,VENOUS 7.32 (7.31-7.41); PO2 VENOUS 31 mmHg (35-42)
[2021-12-19 21:55] LABS: BASE EXCESS VENOUS 4.7 mmol/l ((-2)-(+3)); BICARBONATE,VENOUS 33 mmol/l (19-25)
[2021-12-19 22:12] LABS: ANION GAP 11.2 mEq/L (7-13); CHLORIDE,CL 100 mmol/L (98-107); SODIUM,NA 141 mmol/L (136-145)
[2021-12-19] MEDS ORDERED: predniSONE 20 MG Tab PO ONE (22:16)
== END 2021-12-19 23:06 | disposition home or self-care (01) ==
LOC: DL.ED 21:17
DX: R06.02 Shortness of breath (principal); I10 Essential (primary) hypertension; E66.01 Morbid (severe) obesity due to excess calories; Z68.45 Body mass index [BMI] 70 or greater, adult; Z86.16 Personal history of COVID-19; Z20.822 Contact with and (suspected) exposure to COVID-19; Z79.899 Other long term (current) drug therapy; Z79.82 Long term (current) use of aspirin
CPT/HCPCS: 36415; 71045; 80053; 82803; 83735; 83880; 84484; 85025; 87635; 94640; 99285; J7512; J7620-GY; U0002

== ENCOUNTER 2022-01-02 20:16 | Emergency (ER) | payer MEDICAID ==
[2022-01-02 22:13] LABS: ANION GAP 9.8 mEq/L (7-13); CHLORIDE,CL 102 mmol/L (98-107); SODIUM,NA 139 mmol/L (136-145)
[2022-01-02 22:21] LABS: ESTIMATED GFR > 60
[2022-01-02] MEDS ORDERED: cefTRIAXone 1 GM in Sodium Chloride 0.9% 50 ML IV ONE (23:35)
[2022-01-02] MEDS ORDERED: methylPREDNISolone Sodium Succinate 125 MG/2 ML SDV IVPUSH ONE (23:36)
== END 2022-01-03 00:20 | disposition home or self-care (01) ==
LOC: DL.ED 20:16
DX: J45.41 Moderate persistent asthma with (acute) exacerbation (principal); I10 Essential (primary) hypertension; K21.9 Gastro-esophageal reflux disease without esophagitis; E66.9 Obesity, unspecified; Z68.45 Body mass index [BMI] 70 or greater, adult; Z86.16 Personal history of COVID-19; Z79.82 Long term (current) use of aspirin; Z79.899 Other long term (current) drug therapy
CPT/HCPCS: 36415; 71046; 80053; 83605; 83735; 83880; 84484; 85025; 85379; 87040; 93005; 96365; 96375; 99285; J0696; J2930; 93010; 99284

== ENCOUNTER 2022-01-11 16:54 | Emergency (ER) | payer MEDICAID ==
[2022-01-11] MEDS ORDERED: predniSONE 20 MG Tab PO ONE (16:55)
[2022-01-11] MEDS ORDERED: Albuterol/Ipratropium 3.0-0.5 MG/3 ML Neb Soln NEB ONE (18:13)
[2022-01-11 18:24] LABS: BASE EXCESS VENOUS 3.4 mmol/l ((-2)-(+3)); BICARBONATE,VENOUS 30 mmol/l (19-25); O2 DELIVERY DEVICE NASAL CANNULA; O2 SATURATION VENOUS 75.9 % (60-80); PCO2 VENOUS 53 mmHg (41-51); PH,VENOUS 7.37 (7.31-7.41); PO2 VENOUS 40 mmHg (35-42)
[2022-01-11 18:27] LABS: O2 FLOW RATE 5
[2022-01-11 18:40] LABS: ANION GAP 10.9 mEq/L (7-13); CHLORIDE,CL 100 mmol/L (98-107); SODIUM,NA 139 mmol/L (136-145)
[2022-01-11 18:43] LABS: ESTIMATED GFR 127 mL/min (>=60)
[2022-01-11] MEDS ORDERED: methylPREDNISolone Sodium Succinate 125 MG/2 ML SDV IVPUSH ONE (18:46)
[2022-01-11] MEDS ORDERED: predniSONE 20 MG Tab ONE (20:25)
== END 2022-01-11 20:24 | disposition home or self-care (01) ==
LOC: DL.ED 16:54
DX: J45.901 Unspecified asthma with (acute) exacerbation (principal); I10 Essential (primary) hypertension; E66.9 Obesity, unspecified; Z68.45 Body mass index [BMI] 70 or greater, adult; Z86.16 Personal history of COVID-19; Z79.82 Long term (current) use of aspirin; Z79.899 Other long term (current) drug therapy
CPT/HCPCS: 36415; 71045; 80053; 80307; 82803; 83605; 83735; 83880; 84484; 85025; 87040; 94640; 96374; 99285; J2930; J7512; J7620-GY

== ENCOUNTER 2022-02-07 14:21 | Emergency (ER) | payer MEDICAID ==
[2022-02-07] MEDS ORDERED: Sodium Chloride 0.9% 10 ML Syringe FLUSH PRN (16:57)
[2022-02-07] MEDS ORDERED: Albuterol/Ipratropium 3.0-0.5 MG/3 ML Neb Soln NEB ONE ×2 (17:11→18:21)
[2022-02-07 19:30] LABS: CORONAVIRUS COVID-19 NAA NEGATIVE (NEGATIVE)
== END 2022-02-07 20:05 | disposition home or self-care (01) ==
LOC: DL.ED 14:21
DX: R06.02 Shortness of breath (principal); I10 Essential (primary) hypertension; E66.9 Obesity, unspecified; Z68.45 Body mass index [BMI] 70 or greater, adult; Z99.81 Dependence on supplemental oxygen; Z86.16 Personal history of COVID-19; Z79.82 Long term (current) use of aspirin; Z79.899 Other long term (current) drug therapy; Z20.822 Contact with and (suspected) exposure to COVID-19
CPT/HCPCS: 0240U; 36415; 71045; 83605; 83880; 84484; 85025; 86140; 93005; 94640; 99285; J7620-GY

== ENCOUNTER 2022-03-31 17:01 | Emergency (ER) | payer MEDICAID ==
[2022-03-31] MEDS ORDERED: Polymyxin B/Trimethoprim 10 ML Bottle ONE (20:31)
[2022-03-31 22:07] LABS: ANION GAP 8.6 mEq/L (7-13); CHLORIDE,CL 100 mmol/L (98-107); SODIUM,NA 139 mmol/L (136-145)
[2022-03-31 22:14] LABS: ESTIMATED GFR 122 mL/min (>=60)
[2022-03-31] MEDS ORDERED: Ketorolac 30 MG/ML SDV IM ONE (22:17)
== END 2022-03-31 22:29 | disposition home or self-care (01) ==
LOC: DL.ED 17:01
DX: H10.31 Unspecified acute conjunctivitis, right eye (principal); M54.50 Low back pain, unspecified; I10 Essential (primary) hypertension; F41.9 Anxiety disorder, unspecified; E66.9 Obesity, unspecified; Z68.45 Body mass index [BMI] 70 or greater, adult; Z79.899 Other long term (current) drug therapy
CPT/HCPCS: 36415; 80053; 85025; 96372; 99283; A9270; J1885

== ENCOUNTER 2022-04-06 17:50 | Emergency (ER) | payer MEDICAID ==
[2022-04-06] MEDS ORDERED: Fluconazole 100 MG Tab PO ONE (18:17)
[2022-04-06] MEDS ORDERED: Nystatin Crm 15 GM Tube TOP ONE (18:18)
[2022-04-06 18:55] LABS: PTT,PARTIAL THROMBOPLSTIN TIME 24.9 SEC (22.0-34.0)
[2022-04-06 18:58] LABS: ANION GAP 7.5 mEq/L (7-13); CHLORIDE,CL 98 mmol/L (98-107); SODIUM,NA 137 mmol/L (136-145)
[2022-04-06 19:00] LABS: ESTIMATED GFR 121 mL/min (>=60)
== END 2022-04-06 19:45 | disposition home or self-care (01) ==
LOC: DL.ED 17:50
DX: R04.2 Hemoptysis (principal); E66.9 Obesity, unspecified; I10 Essential (primary) hypertension; K21.9 Gastro-esophageal reflux disease without esophagitis; Z79.82 Long term (current) use of aspirin; Z79.899 Other long term (current) drug therapy
CPT/HCPCS: 36415; 71045; 80053; 85025; 85610; 85730; 99283; 99284; A9270-GY

== ENCOUNTER 2022-07-08 14:55 | Emergency (ER) | payer MEDICAID, OTHER ==
[2022-07-08 16:03] LABS: ANION GAP 9.4 mEq/L (7-13)
== END 2022-07-08 16:32 | disposition home or self-care (01) ==
LOC: DL.ED 14:55
DX: R04.0 Epistaxis (principal); E10.8 Type 1 diabetes mellitus with unspecified complications; Z79.899 Other long term (current) drug therapy
CPT/HCPCS: 36415; 80053; 85025; 85610; 99283

== ENCOUNTER 2022-08-02 01:45 | Emergency (ER) | payer MEDICAID | END 2022-08-02 03:42 | disposition home or self-care (01) | LOC: DL.ED 01:45 | DX: M79.661 Pain in right lower leg (principal); I11.0 Hypertensive heart disease with heart failure; I50.9 Heart failure, unspecified; J45.909 Unspecified asthma, uncomplicated; K21.9 Gastro-esophageal reflux disease without esophagitis; E13.9 Other specified diabetes mellitus without complications; E66.9 Obesity, unspecified; Z68.45 Body mass index [BMI] 70 or greater, adult; Z79.82 Long term (current) use of aspirin; Z79.899 Other long term (current) drug therapy; Z86.16 Personal history of COVID-19 | CPT/HCPCS: 99283 ==

== ENCOUNTER 2022-11-23 13:02 | Emergency (ER) | payer MEDICAID ==
[2022-11-23] MEDS ORDERED: Albuterol/Ipratropium 3.0-0.5 MG/3 ML Neb Soln NEB ONE (14:06)
[2022-11-23] MEDS ORDERED: Polymyxin B/Trimethoprim 10 ML Bottle EYEBOTH ONE (16:31)
== END 2022-11-23 16:44 | disposition home or self-care (01) ==
LOC: EDSEX → DL.ED 13:02 → MERGE 13:02 → DL.ED 16:44
DX: J06.9 Acute upper respiratory infection, unspecified (principal); H10.023 Other mucopurulent conjunctivitis, bilateral; I11.0 Hypertensive heart disease with heart failure; I50.9 Heart failure, unspecified; E11.9 Type 2 diabetes mellitus without complications; F17.210 Nicotine dependence, cigarettes, uncomplicated; E66.01 Morbid (severe) obesity due to excess calories; Z68.45 Body mass index [BMI] 70 or greater, adult; Z79.899 Other long term (current) drug therapy; Z79.82 Long term (current) use of aspirin; Z20.822 Contact with and (suspected) exposure to COVID-19
CPT/HCPCS: 71045; 87804; 99284; 99285; A9270-GY; J7620-GY; U0002

== ENCOUNTER 2022-11-30 11:38 | Emergency (ER) | payer MEDICAID ==
[2022-11-30] MEDS ORDERED: Take Home: Amoxicillin/Clavulanate K 875-125 MG Tab, 6 Tab Pack PO ONE (12:26)
== END 2022-11-30 12:35 | disposition home or self-care (01) ==
LOC: DL.ED 11:38
DX: H66.001 Acute suppurative otitis media without spontaneous rupture of ear drum, right ear (principal); J01.90 Acute sinusitis, unspecified; I11.0 Hypertensive heart disease with heart failure; I50.9 Heart failure, unspecified; J45.909 Unspecified asthma, uncomplicated; E11.9 Type 2 diabetes mellitus without complications; E66.9 Obesity, unspecified; Z68.44 Body mass index [BMI] 60.0-69.9, adult; Z79.82 Long term (current) use of aspirin; Z79.899 Other long term (current) drug therapy
CPT/HCPCS: 99282; 99283; A9270-GY

== ENCOUNTER 2023-06-17 14:57 | Emergency (ER) | payer MEDICAID ==
[2023-06-17 15:21] LABS: BASOPHILS PERCENT AUTO 0.4 % (0.0-1.0); EOSINOPHILS PERCENT AUTO 2.8 % (1.0-3.0); HEMATOCRIT 53.1 % (40.0-54.0); HEMOGLOBIN 17.1 g/dL (14.0-18.0); LYMPHOCYTES PERCENT AUTO 30.2 % (20.5-50.1); MEAN CORPUSCULAR HGB CONC 32.2 g/dL (33.0-35.0); MEAN CORPUSCULAR VOLUME 83.8 fL (80-100); NEUTROPHILS PERCENT AUTO 57.6 % (42.2-75.2); PLATELET COUNT,PLT 276 10^3/uL (150-450); RED BLOOD CELL COUNT 6.34 10^6/uL (4.6-6.2); WHITE BLOOD CELL COUNT,WBC 11.4 10^3/uL (5.0-10.0)
[2023-06-17 15:37] LABS: ALANINE AMINOTRANSFERASE,ALT 42 U/L (16-63); ALBUMIN 3.1 g/dL (3.4-5.0); ALKALINE PHOSPHATASE 132 U/L (46-116); ANION GAP 7.7 mEq/L (7-13); ASPARTATE AMNIOTRANSFERASE,AST 24 U/L (15-37); BILIRUBIN TOTAL 0.4 mg/dL (0.2-1.0); BLOOD UREA NITROGEN,BUN 8 mg/dL (7-18); BUN/CREATININE RATIO 10.4 (No establ ref range); CALCIUM 8.2 mg/dL (8.5-10.1); CARBON DIOXIDE,CO2 33 mmol/L (21-32); CHLORIDE,CL 101 mmol/L (98-107); CREATININE 0.77 mg/dL (0.70-1.30); EST CRCL DRUG DOSING (CG) 155.37 mL/min; GLUCOSE RANDOM 106 mg/dL (70-99); LIPASE 25 U/L (16-77); POTASSIUM,K 3.7 mmol/L (3.5-5.1); PROTEIN TOTAL,TP 8.1 g/dL (6.4-8.2); SODIUM,NA 138 mmol/L (136-145)
[2023-06-17 15:38] LABS: A/G RATIO 0.62; ESTIMATED GFR 124 mL/min (>=60); ETHANOL BLOOD MEDICAL < 3 mg/dL (0); LACTIC ACID 1.4 mmol/L (0.4-2.0)
== END 2023-06-17 16:10 | disposition home or self-care (01) ==
LOC: DL.ED 14:57
DX: I24.9 Acute ischemic heart disease, unspecified (principal); M25.512 Pain in left shoulder; I11.0 Hypertensive heart disease with heart failure; I50.9 Heart failure, unspecified; E11.9 Type 2 diabetes mellitus without complications; E66.9 Obesity, unspecified; Z68.44 Body mass index [BMI] 60.0-69.9, adult; Z79.82 Long term (current) use of aspirin; Z79.899 Other long term (current) drug therapy; Z86.16 Personal history of COVID-19
CPT/HCPCS: 36415; 71045; 80053; 80307; 83605; 83690; 84484; 85025; 93005; 93010; 99284; 99285

== ENCOUNTER 2023-07-04 08:10 | Emergency (ER) | payer MEDICAID ==
[2023-07-04 08:44] LABS: BASOPHILS PERCENT AUTO 0.3 % (0.0-1.0); EOSINOPHILS PERCENT AUTO 3.3 % (1.0-3.0); HEMATOCRIT 55.3 % (40.0-54.0); MEAN CORPUSCULAR HEMOGLOBIN 27.8 pg (27.0-34.0); MEAN CORPUSCULAR HGB CONC 32.5 g/dL (33.0-35.0); MEAN CORPUSCULAR VOLUME 85.3 fL (80-100); MONOCYTES PERCENT AUTO 5.4 % (2-8); PLATELET COUNT,PLT 272 10^3/uL (150-450); RED BLOOD CELL COUNT 6.48 10^6/uL (4.6-6.2); WHITE BLOOD CELL COUNT,WBC 10.3 10^3/uL (5.0-10.0)
[2023-07-04 09:11] LABS: ALANINE AMINOTRANSFERASE,ALT 80 U/L (16-63); ALBUMIN 3.2 g/dL (3.4-5.0); ALKALINE PHOSPHATASE 143 U/L (46-116); ANION GAP 8.2 mEq/L (7-13); ASPARTATE AMNIOTRANSFERASE,AST 45 U/L (15-37); B-TYPE NATRIURETIC PEPTIDE,BNP < 5 pg/ml (0-100); BILIRUBIN TOTAL 0.7 mg/dL (0.2-1.0); BLOOD UREA NITROGEN,BUN 13 mg/dL (7-18); BUN/CREATININE RATIO 16.2 (No establ ref range); CALCIUM 8.6 mg/dL (8.5-10.1); CARBON DIOXIDE,CO2 32 mmol/L (21-32); CHLORIDE,CL 99 mmol/L (98-107); EST CRCL DRUG DOSING (CG) 149.54 mL/min; GLUCOSE RANDOM 129 mg/dL (70-99); POTASSIUM,K 3.2 mmol/L (3.5-5.1); PROTEIN TOTAL,TP 8.1 g/dL (6.4-8.2); SODIUM,NA 136 mmol/L (136-145)
[2023-07-04 09:14] LABS: A/G RATIO 0.65; ESTIMATED GFR 123 mL/min (>=60)
== END 2023-07-04 09:35 | disposition home or self-care (01) ==
LOC: DL.ED 08:10
DX: R07.89 Other chest pain (principal); M25.512 Pain in left shoulder; I11.0 Hypertensive heart disease with heart failure; I50.9 Heart failure, unspecified; J45.901 Unspecified asthma with (acute) exacerbation; E11.9 Type 2 diabetes mellitus without complications; E66.9 Obesity, unspecified; Z68.45 Body mass index [BMI] 70 or greater, adult; Z86.16 Personal history of COVID-19; Z79.899 Other long term (current) drug therapy; Z79.82 Long term (current) use of aspirin
CPT/HCPCS: 36415; 71045; 80053; 83880; 84484; 85025; 93005; 93010; 99284; 99285

== ENCOUNTER 2023-08-04 15:51 | Emergency (ER) | payer MEDICAID ==
[2023-08-04] MEDS ORDERED: Sodium Chloride 0.9% 10 ML Syringe FLUSH PRN (16:12)
[2023-08-04 16:26] LABS: BASOPHILS PERCENT AUTO 0.3 % (0.0-1.0); EOSINOPHILS PERCENT AUTO 0.2 % (1.0-3.0); HEMATOCRIT 54.1 % (40.0-54.0); HEMOGLOBIN 17.3 g/dL (14.0-18.0); LYMPHOCYTES PERCENT AUTO 9.5 % (20.5-50.1); MEAN CORPUSCULAR HEMOGLOBIN 28.1 pg (27.0-34.0); MEAN CORPUSCULAR VOLUME 87.8 fL (80-100); MONOCYTES PERCENT AUTO 3.9 % (2-8); NEUTROPHILS PERCENT AUTO 86.1 % (42.2-75.2); PLATELET COUNT,PLT 303 10^3/uL (150-450); RED BLOOD CELL COUNT 6.16 10^6/uL (4.6-6.2); WHITE BLOOD CELL COUNT,WBC 11.8 10^3/uL (5.0-10.0)
[2023-08-04 16:48] LABS: A/G RATIO 0.63; ALBUMIN 3.2 g/dL (3.4-5.0); ANION GAP 11.9 mEq/L (7-13); BILIRUBIN TOTAL 0.4 mg/dL (0.2-1.0); BUN/CREATININE RATIO 12.7 (No establ ref range); C-REACTIVE PROTEIN 1.4 ng/dL (<=0.50); CALCIUM 8.1 mg/dL (8.5-10.1); CREATININE 0.79 mg/dL (0.70-1.30); EST CRCL DRUG DOSING (CG) 151.43 mL/min; MAGNESIUM 2.3 mg/dL (1.8-2.4); POTASSIUM,K 3.9 mmol/L (3.5-5.1); PROTEIN TOTAL,TP 8.3 g/dL (6.4-8.2)
[2023-08-04] MEDS ORDERED: Iopamidol 755 Mg/ML 100 ML Bottle IVPUSH ONE (16:49)
[2023-08-04 16:50] LABS: PROTHROMBIN TIME 10.1 SEC (9.0-12.0)
[2023-08-04 16:51] LABS: LACTIC ACID 1.6 mmol/L (0.4-2.0)
[2023-08-04] MEDS ORDERED: Sodium Chloride 0.9% 500 ML IV SCH (17:15)
== END 2023-08-04 17:55 | disposition home or self-care (01) ==
LOC: DL.ED 15:51
DX: R06.02 Shortness of breath (principal); I11.0 Hypertensive heart disease with heart failure; I50.9 Heart failure, unspecified; J45.909 Unspecified asthma, uncomplicated; F17.210 Nicotine dependence, cigarettes, uncomplicated; Z79.899 Other long term (current) drug therapy; Z86.16 Personal history of COVID-19; E66.9 Obesity, unspecified; Z68.44 Body mass index [BMI] 60.0-69.9, adult
CPT/HCPCS: 36415; 71275; 80053; 83605; 83735; 84484; 85025; 85610; 86140; 93005; 93010; 99284; 99285; J3490; J7040; Q9967

== ENCOUNTER 2024-04-08 22:05 | Emergency (ER) | payer MEDICAID ==
[2024-04-09] MEDS: Albuterol/Ipratropium 3.0-0.5 MG/3 ML Neb Soln NEB ONE (00:50)
== END 2024-04-09 01:15 | disposition home or self-care (01) ==
LOC: DL.ED 22:05
DX: J06.9 Acute upper respiratory infection, unspecified (principal); I11.0 Hypertensive heart disease with heart failure; I50.9 Heart failure, unspecified; E66.9 Obesity, unspecified; Z86.16 Personal history of COVID-19; Z68.44 Body mass index [BMI] 60.0-69.9, adult; F17.210 Nicotine dependence, cigarettes, uncomplicated; Z79.82 Long term (current) use of aspirin; Z79.899 Other long term (current) drug therapy
CPT/HCPCS: 87804; 99283; 99285; J7620-GY; U0002

== ENCOUNTER 2024-07-03 16:59 | Emergency (ER) | payer MEDICAID ==
[2024-07-03] MEDS: Aspirin 81 MG Tab.Chew PO ONE (17:22)
[2024-07-03 17:33] LABS: BASOPHILS PERCENT AUTO 0.5 % (0.0-1.0); EOSINOPHILS PERCENT AUTO 1.7 % (1.0-3.0); HEMATOCRIT 51.7 % (40.0-54.0); HEMOGLOBIN 17.2 g/dL (14.0-18.0); LYMPHOCYTES PERCENT AUTO 30.6 % (20.5-50.1); MEAN CORPUSCULAR HGB CONC 33.3 g/dL (33.0-35.0); MEAN CORPUSCULAR VOLUME 87.2 fL (80-100); MONOCYTES PERCENT AUTO 9.6 % (2-8); NEUTROPHILS PERCENT AUTO 57.6 % (42.2-75.2); PLATELET COUNT,PLT 273 10^3/uL (150-450); RED BLOOD CELL COUNT 5.93 10^6/uL (4.6-6.2); WHITE BLOOD CELL COUNT,WBC 8.7 10^3/uL (5.0-10.0)
[2024-07-03 17:51] LABS: A/G RATIO 0.7; ALBUMIN 3.4 g/dL (3.4-5.0); ANION GAP 12.5 mEq/L (7-13); BUN/CREATININE RATIO 14.1 (No establ ref range); CALCIUM 7.9 mg/dL (8.5-10.1); CREATININE 0.92 mg/dL (0.70-1.30); EST CRCL DRUG DOSING (CG) 128.86 mL/min; MAGNESIUM 1.9 mg/dL (1.8-2.4); POTASSIUM,K 3.5 mmol/L (3.5-5.1)
== END 2024-07-03 21:21 | disposition home or self-care (01) ==
LOC: DL.ED 16:59
DX: R07.89 Other chest pain (principal); J96.11 Chronic respiratory failure with hypoxia; F17.210 Nicotine dependence, cigarettes, uncomplicated; E66.01 Morbid (severe) obesity due to excess calories; I11.0 Hypertensive heart disease with heart failure; I50.9 Heart failure, unspecified; Z99.81 Dependence on supplemental oxygen; Z79.51 Long term (current) use of inhaled steroids; Z79.82 Long term (current) use of aspirin; Z79.899 Other long term (current) drug therapy; Z68.44 Body mass index [BMI] 60.0-69.9, adult
CPT/HCPCS: 36415; 71046; 80053; 83735; 84484; 85025; 93005; 99285; A9270; 93010; 99284